=== PATIENT | female | born 1950 | race Caucasian/White ===

== ENCOUNTER 2016-08-23 08:39 | Emergency (ER) | payer MEDICARE ==
--- NOTE | 2016-08-23 08:56 | Emergency Department Record ---
History of Present Illness - General Chief Complaint: Back Pain/Injury Stated Complaint: BACK /STOMACH PAIN Time Seen by Provider: 08/23/16 08:55 Source: Patient Mode of Arrival: Ambulatory Limitations: No limitations - History of Present Illness Initial Comments: The patient is here due to a 2 hour hx of R flank and back pain. The onset was fairly sudden. The patient describes the pain as a sharp aching pain with radiation around the front to the abdomen. She also has some nausea, but no SOB , BRITTANI, sweating or vomiting. The patient states the pain sometimes does radiate around to the lower chest in addition to the abdomen. She denies any hx of similar problems or issues or any recent illnesses. She did just recently start on Prednisone for an allergic rxn. MD Complaint: Back pain Onset/Timin -: Hour(s) Similar Symptoms Previously: No Place: Home Radiation: Other Severity: Severe Severity scale (1-10): 8 Quality: Other Consistency: Constant Context: Unknown Associated Symptoms: Chest pain, Nausea/vomiting - Related Data Home Medications Medication Instructions Recorded Confirmed Last Taken Acetaminophen/Diphenhydramine 1 tab PO ASDIR 09/15/15 08/23/16 09/14/15 [Tylenol Pm Ex-Strength Caplet] Pediatric Multivit Comb No.101 2 tab PO DAILY 09/15/15 08/23/16 09/14/15 [Gummy] Cholecalciferol (Vitamin D3) 2,000 unit PO DAILY cap 08/21/16 08/23/16 Unknown [Vitamin D3] Previous Rx's Medication Instructions Recorded Sucralfate [Carafate] 1 gm PO QID #28 tablet 08/23/16 Allergies Allergy/AdvReac Type Severity Reaction Status Date / Time polymyxin B Allergy Mild HIVES Verified 08/23/16 08:49 Travel Screening - Travel/Exposure Within Last 30 Days Have you traveled within the last 30 days?: No Review of Systems Constitutional: Denies: Chills, Fever Eyes: Denies: Eye discharge ENT: Denies: Congestion Respiratory: Denies: Cough, Dyspnea Past Medical History - SOCIAL HISTORY Smoking Status: Never smoker Alcohol Use: None Drug Use: None - RESPIRATORY Hx Respiratory Disorders: Yes Hx Sleep Apnea: Yes Hx of CPAP: Yes - CARDIOVASCULAR Hx Cardio Disorders: No - NEURO Hx Neuro Disorders: No - GI Hx GI Disorders: Yes Comment:: Treated in 2003 for ulcerative colitis. - Hx Genitourinary Disorders: Yes Hx UTI: Yes - ENDOCRINE Hx Endocrine Disorders: No - MUSCULOSKELETAL Hx Musculoskeletal Disorders: No - PSYCH Hx Psych Problems: No - HEMATOLOGY/ONCOLOGY Hx Hematology/Oncology Disorders: No Family Medical History Any Significant Family History?: Yes Hx Cancer: Father Hx Diabetes: Father, Mother, Brother/Sister Hx Resp Disorders: Brother/Sister Hx Stroke: Mother Physical Exam - General General Appearance: Alert, Oriented x3, Cooperative, No acute distress - Head Head exam: Atraumatic, Normocephalic, Normal inspection - Eye Eye exam: Normal appearance, PERRL - ENT Throat exam: Normal inspection. negative: Tonsillar erythema, Tonsillar exudate - Neck Neck exam: Normal inspection, Full ROM. negative: Tenderness - Respiratory Respiratory exam: Normal lung sounds bilaterally. negative: Respiratory distress - Cardiovascular Cardiovascular Exam: Regular rate, Normal rhythm, Normal heart sounds - GI/Abdominal GI/Abdominal exam: Soft, Normal bowel sounds, Tenderness (There is mild epigastric tenderness that does reproduce the pain.). negative: Guarding, Hypoactive bowel sounds, Pulsatile mass, Rebound, Rigid - Extremities Extremities exam: Normal inspection, Full ROM, Normal capillary refill. negative: Tenderness - Back Back exam: Reports: Normal inspection, CVA tenderness (R), Paraspinal tenderness (There is R upper lumbar paraspinal tenderness that does reproduce the pain.). Denies: CVA tenderness (L), Vertebral tenderness - Neurological Neurological exam: Alert, Normal gait. negative: Abnormal gait, Motor sensory deficit Course Vital Signs 08/23/16 08:43 Temperature 97.8 F Pulse Rate 66 Respiratory 16 Rate Blood Pressure 177/81 Pulse Ox 96 - Reevaluation(s) Reevaluation #1: The patient is feeling much better at this time. Her R flank and abdominal pain have mostly resolved. She is resting comfortably with only mild epigastric pain. 08/23/16 10:15 Reevaluation #2: The patient is doing much better at this time. I did discuss her WBC with her and felt the most likely cause was the recent Prednisone she is taking due to a possible allergic rxn 2 days ago. 08/23/16 10:23 Reevaluation #3: The patient is feeling 100% better with the GI medicines. I did discuss the possibility this is all due to taking the Prednisone and causing some stomach irritation which could be causing her issues. 08/23/16 10:41 Reevaluation #4: The patient is doing very well at this time. She denies any pain or discomfort and is still 100% improved with the GI medicines. I explained to her the only thing that I can think as to the etiology of the pain is the recent Prednisone which I believe caused GI irritation. Due to the patient's entire workup being neg I do feel she is very stable for discharge and F/U this week with her PCP. 08/23/16 12:42 Medical Decision Making - Data Complexity MDM Data: Labs Ordered and/or Reviewed, X-Ray Ordered and/or Reviewed, EKG Ordered and/or Reviewed - Lab Data Result diagrams: 08/23/16 09:40 08/23/16 09:36 - EKG Data -: EKG Interpreted by Me EKG: No Acute Changes, Normal EKG, Unchanged From Previous - Radiology Data Radiology results: Report reviewed (CXR: Neg Abd CT: No acute abnormalities. Pos Gallstones. Chest CT: Neg for any abnormalities.) Disposition Disposition: Discharge Clinical Impression: Abdominal pain Qualifiers: Abdominal location: upper abdomen, unspecified Qualified Code(s): R10.10 - Upper abdominal pain, unspecified Disposition: Home, Self-Care Condition: (1) Good Instructions: Abdominal Pain (ED) Additional Instructions: Please stop the Prednisone and start the Carafate. Please see your PCP in 2-3 days if having any itching or discomfort. Please return to the ER for any CP, shortness of breath, abdominal pain or vomiting. Prescriptions: Sucralfate [Carafate] 1 gm PO QID #28 tablet Forms: Patient Portal Access Time of Disposition: 12:41
[2016-08-23] MEDS ORDERED: SUCRALFATE 1 G/10 ML UD PO ONE (09:09)
[2016-08-23] MEDS ORDERED: ONDANSETRON HCL IV 4 MG/2 ML VIAL IVP ONE (09:09)
[2016-08-23 09:43] LABS: BASO % 0.1 % (0-6); HEMATOCRIT 42.6 % (35.0-47.0); HEMOGLOBIN 14.6 gm/dl (11.6-16.0); LYMPH % 10.9 % (16-45); MEAN CELL VOLUME 96.4 fl (81-97); MEAN CORPUSCULAR HGB CONC 34.3 g/dl (32-36); MEAN PLATELET VOLUME 9.6 fl (7.4-10.4); PLATELET COUNT 307 K/uL (130-400); RED BLOOD COUNT 4.42 M/uL (3.80-5.40); RED CELL DISTRIBUTION WIDTH 13.3 % (11.5-14.5)
[2016-08-23 09:46] LABS: WHITE BLOOD COUNT W/O DIFF 20.2 K/uL (4.2-12.2)
[2016-08-23 09:58] LABS: ALBUMIN 4.1 gm/dL (3.5-5.0); BILIRUBIN,TOTAL 0.33 mg/dL (0.2-1.3); TOTAL PROTEIN 7.5 gm/dL (6.3-8.2)
[2016-08-23 09:59] LABS: ANION GAP 15.1 (7-16); BLOOD UREA NITROGEN 16 mg/dL (7-17); CARBON DIOXIDE 23.9 mmol/L (22-30); CREATINE PHOSPHOKINASE 26 U/L (30-135); CREATININE 0.6 mg/dL (0.52-1.04); EST GLOMERULAR FILTRATION RATE > 60 ml/min; GLUCOSE,RANDOM 135 mg/dL (70-110)
[2016-08-23 10:12] LABS: CKMB 0.9 ug/L (0-6)
[2016-08-23 10:13] LABS: URINE APPEARANCE CLEAR; URINE BILIRUBIN NEGATIVE (NEGATIVE); URINE BLOOD TRACE-I (NEGATIVE); URINE COLOR YELLOW; URINE GLUCOSE (UA) NEGATIVE (NEGATIVE); URINE KETONE NEGATIVE (NEGATIVE); URINE LEUKOCYTE ESTERASE NEGATIVE (NEGATIVE); URINE NITRITE NEGATIVE (NEGATIVE); URINE PROTEIN NEGATIVE (NEGATIVE); URINE UROBILINOGEN 0.2 E.U./dL (0.20 - 1.00)
[2016-08-23] MEDS ORDERED: MAGNESIUM HYDROXIDE/AL HYDROX 10.0001 ML, LIDOCAINE VISC 2% 200 MG, PHENOBARB/HYOSCY/AT... PO ONE ×3 (10:14)
[2016-08-23 10:18] LABS: TROPONIN I < 0.012 ng/mL (0.00-0.034)
[2016-08-23 10:26] LABS: URINE MUCUS LIGHT; URINE RBC 0 - 2 (NONE SEEN); URINE SQUAMOUS EPITHELIAL CELL 0 - 2 /hpf; URINE WBC NONE SEEN (0-2/hpf)
[2016-08-23 10:26] LABS: PLATELET ESTIMATE NORMAL (NORMAL)
[2016-08-23 12:29] LABS: CKMB 0.8 ug/L (0-6)
[2016-08-23 12:30] LABS: TROPONIN I < 0.012 ng/mL (0.00-0.034)
--- NOTE | 2016-08-27 07:21 | RADIOLOGY REPORT ---
EXAM: CHEST, TWO VIEWS HISTORY: MID STERNAL CHEST PAIN AND PRESSURE. TECHNIQUE: Two views of the chest were obtained. Comparison: None. FINDINGS: The heart is not enlarged. The lungs and pleural spaces are clear. IMPRESSION: NO ACUTE CARDIOPULMONARY ABNORMALITY. JOB NUMBER: [id number] [facility]
--- NOTE | 2016-08-27 07:31 | CT SCAN REPORT ---
EXAM: CT OF THE ABDOMEN AND PELVIS WITHOUT CONTRAST HISTORY: BACK PAIN. CHEST PAIN AND PRESSURE. NAUSEA. TECHNIQUE: Routine noncontrast CT images through the abdomen and pelvis were obtained. Comparison: None. FINDINGS: The visualized lung bases are unremarkable. There is a 2 cm sized range stone within the gallbladder. The liver, spleen, and adrenals have a normal noncontrast appearance. The pancreas appears unremarkable other than suggestion of trace peripancreatic fluid adjacent to the head/uncinate process. There is also an adjacent duodenal diverticula both within the second and third portion of the duodenum. There is bilateral perinephric fat stranding probably related to a chronic process, correlate with physical exam findings and urinalysis. No renal or ureteral calculi or hydronephrosis. Suggestion of a small hiatal hernia. Mild scattered colonic diverticulosis without CT evidence of diverticulitis. Bladder unremarkable. The uterus is present. No abdominal or pelvic lymphadenopathy. The aorta is normal in caliber. Atherosclerotic calcifications are noted. Small fat containing periumbilical hernia. No acute osseous abnormality. Calcified disk bulge at L2-L3 likely contributes to central canal narrowing. IMPRESSION: 1. SUGGESTION OF SUBTLE PERIPANCREATIC FLUID ADJACENT TO THE HEAD/UNCINATE PROCESS. THIS COULD RELATE TO EARLY PANCREATITIS IN THE APPROPRIATE CLINICAL SETTING. 2. DUODENAL DIVERTICULA. 3. CHOLELITHIASIS. 4. BILATERAL PERINEPHRIC FAT STRANDING FAVOR CHRONIC ETIOLOGIES THOUGH CORRELATE WITH PHYSICAL EXAM FINDINGS AND URINALYSIS TO EXCLUDE INFECTIOUS CAUSES. 5. TINY HIATAL HERNIA. 6. COLONIC DIVERTICULOSIS. 7. LUMBAR SPONDYLOSIS. DISK BULGE AT L2-3 WITH CENTRAL CANAL NARROWING. [facility]BER: [id number] [facility]
--- NOTE | 2016-08-27 07:35 | CT ANGIOGRAM REPORT ---
EXAM: CTA OF THE CHEST HISTORY: CHEST PRESSURE AND BACK PAIN. EVALUATE FOR PULMONARY EMBOLUS. TECHNIQUE: Routine CT angiography images of the chest were obtained following intravenous administration of 100 ml of Omnipaque 350. Comparison: None. FINDINGS: The heart is not enlarged. No pericardial effusion. The aorta enhances normally with contrast. There is calcified and noncalcified atherosclerotic plaque. No central filling defects within the pulmonary arteries to suggest acute PE. No mediastinal or hilar lymph node enlargement. Mild bibasilar dependent atelectasis. No focal consolidation, pleural effusion , or pneumothorax. The visualized upper abdomen demonstrates cholelithiasis. Suspect a duodenal diverticulum. No acute osseous abnormality. IMPRESSION: 1. NO ACUTE INTRATHORACIC ABNORMALITY. SPECIFICALLY NO EVIDENCE OF PULMONARY EMBOLUS. 2. AORTIC ATHEROSCLEROSIS. 3. CHOLELITHIASIS. JOB NUMBER: [id number] [facility]
== END 2016-08-23 12:58 | disposition home or self-care (01) ==
LOC: ER 08:39
DX: R10.13 Epigastric pain (principal); R11.0 Nausea; M54.5 Low back pain; R07.89 Other chest pain
CPT/HCPCS: 99284 ×2; 96374; 82550; 83690; 80076; 82553; 84484; 80048; 81001; 85379; 85027; 71020; 71275; 74176; 93005; 93010; Q9967; J2405; J3490

== ENCOUNTER 2018-03-22 05:43 | Day surgery (SDC) | payer MEDICARE ==
[2018-03-22] MEDS ORDERED: EPHEDRINE SULFATE 50 MG/ML ML IV ONE (05:44)
[2018-03-22] MEDS ORDERED: ONDANSETRON HCL IV 4 MG/2 ML VIAL IVP ONE (05:44)
[2018-03-22] MEDS ORDERED: BUPIVACAINE 0.25% W/EPI MPF 30ML VIAL IVP ONE (05:44)
[2018-03-22] MEDS ORDERED: MIDAZOLAM HCL 2MG/2ML VIAL IV ONE (05:44)
[2018-03-22] MEDS ORDERED: PROPOFOL 10 MG/ML VIAL IV ONE (05:44)
[2018-03-22] MEDS ORDERED: LIDOCAINE 2% MDV (20MG/ML) 20ML VIAL IV ONE (05:44)
[2018-03-22] MEDS ORDERED: DEXAMETHASONE 4 MG/ML 1ML VIAL IVP ONE (05:44)
[2018-03-22] MEDS ORDERED: 0.9 % SODIUM CHLORIDE 10 ML VIAL IVP ONE (05:44)
[2018-03-22] MEDS ORDERED: TRANEXAMIC ACID 1,000 MG/10 ML ML IV ONE (05:44)
[2018-03-22] MEDS ORDERED: ROPIVACAINE HCL (NAROPIN) /PF 5MG/ML 20ML VIAL IV ONE (05:44)
[2018-03-22] MEDS ORDERED: BUPIVACAINE LIPOSOME 266MG/20ML VIAL IV ONE (05:44)
[2018-03-22] MEDS ORDERED: MECLIZINE 25 MG TABLET PO ONE (06:00)
[2018-03-22] MEDS ORDERED: ACETAMINOPHEN 1,000 MG/100 ML BTL IV ONE (06:00)
[2018-03-22] MEDS ORDERED: METOCLOPRAMIDE 10 MG TABLET PO ONE (06:00)
[2018-03-22] MEDS ORDERED: CEFAZOLIN 2 Gram 2 GM/50 ML BAG IVPB ONE (06:00)
[2018-03-22] MEDS ORDERED: FAMOTIDINE 20MG TABLET PO ONE (06:00)
[2018-03-22] MEDS ORDERED: CELECOXIB 100 MG CAPSULE PO ONE (06:00)
[2018-03-22] MEDS ORDERED: AL HYDROX/MAG HYDROX 30ML UD PO PRN (10:15)
[2018-03-22] MEDS ORDERED: ZOLPIDEM TARTRATE 5 MG TABLET PO PRN (10:15)
[2018-03-22] MEDS ORDERED: TRAMADOL HCL 50 MG TABLET PO PRN (10:15)
[2018-03-22] MEDS ORDERED: MAGNESIUM HYDROXIDE 30 ML UDC PO PRN (10:15)
[2018-03-22] MEDS ORDERED: METOCLOPRAMIDE HCL 10 MG/2 ML VIAL IVP PRN (10:15)
[2018-03-22] MEDS ORDERED: DIPHENHYDRAMINE HCL 25 MG CAPSULE PO PRN (10:15)
[2018-03-22] MEDS ORDERED: SENNOSIDES/DOCUSATE SODIUM UD CAPSULE PO PRN (10:15)
[2018-03-22] MEDS ORDERED: ONDANSETRON HCL IV 4 MG/2 ML VIAL IVP PRN (10:15)
[2018-03-22] MEDS ORDERED: HYDROMORPHONE HCL 2 MG/ML VIAL IV PRN (10:15)
[2018-03-22] MEDS ORDERED: OXYCODONE HCL 5 MG TABLET PO PRN ×2 (10:19)
[2018-03-22] MEDS ORDERED: LORATADINE 10 MG TABLET PO PRN (10:20)
[2018-03-22] MEDS ORDERED: RINGERS SOLUTION,LACTATED 1,000 ML IV PRN (10:31)
[2018-03-22] MEDS: RINGERS SOLUTION,LACTATED 1,000 ML IV SCH (11:37)
[2018-03-22] MEDS ORDERED: TRANEXAMIC ACID 1,000 MG in 0.9 % SODIUM CHLORIDE 100ML 100 ML IVPB ONE (13:00)
--- NOTE | 2018-03-22 13:40 | Rehab Evaluation ---
Patient Information - Patient Information Diagnosis: R knee OA Ordered Treatment: PT Evaluate and Treat Status: Initial Evaluation Surgery: Yes (R TKA) Date of Surgery: 03/22/18 Past Medical/Surgical Hx: PAST MEDICAL/SURGICAL HISTORY Past Surgical History Tubal ligation and appendix PMH - Respiratory Hx Respiratory Disorders Yes Hx Pneumonia Yes: 2003 Hx Sleep Apnea Yes Hx of CPAP Yes Comment: allergies PMH - Cardiovascular Hx Cardiovascular Disorders No Hx Hypertension Yes: on meds good control Exercise Tolerance Good PMH - Neuro Hx Neurological Disorders No Hx Headaches Yes: frequently r/t stress PMH - GI Hx Gastrointestinal Disorders Yes Comment: Treated in 2003 for ulcerative colitis. PMH - Hx Genitourinary Disorders Yes Hx Age of Menopause 43 Hx Urinary Tract Infection Yes PMH - Endocrine Hx Endocrine Disorders No Hx Diabetes No Hx Thyroid Disease No PMH - Musculoskeletal Hx Musculoskeletal Disorders No Hx Arthritis Yes: knees PMH - Psych Hx Psychiatric Problems No Hx Anxiety Yes Hx Depression Yes PMH - Hematology/Oncology Hx Hematology/Oncology No Disorders Premorbid Status: Detail (The patient was independent with all mobility prior to surgery) Social History: Detail (The patient lives in a one story home with spouse with 4 steps at the enterance and 2 hand railings. The patient's bathroom is equipped with a tub/shower combination and a standard height toilet. No grab bars are present. The patient has a walker.) Precautions: [place], Fall, Other (WBAT on the R LE.) - Time With Patient Total Time Spent With Patient (Min): 30 Treatment Procedures: Detail (Initial Evaluation, gait training) Subjective Information - Subjective Information Per Patient (The patient had complaints of R knee pain level 5 at the highest using the 0-10 pain scale.) Objective Data - Mental Status Patient Orientation: Oriented x3 - ROM Not within normal limits (The patient's R knee AROM is limited s/p surgery. All other LE AROM is WNL.) - Strength/Tone Not within normal limits (The patient's R LE strength was not tested s/p surgery however strength is functional ie: the patient was able to complete a SLR and ambulate. The patient's L LE strength was 4+ to 5/5.) - Bed Mobility Independent (The patient was independent with supine to and from sit transfer and scooting up in bed.) - Transfers Independent (The patient was independent with sit to and from stand transfer and toilet transfer with occasional verbal cues for proper technique.) - Balance Balance Sitting: Good Balance Standing: Good - Sensation Intact - Gait Detail (The patient ambulated with 2 wheeled walker a distance of 13 feet x 1 and 40 feet x 1 with WBAT on the R LE with supervision for safety only and one to handle equipment.) Therapy Assessment - Therapy Assessment Detail (The patient was independent with bed mobility, transfers and ambulated with supervison for safety only. Feel patient will progress well with mobility.) Problem List - Problem List Physical Therapy Problem List: Detail (1) Decreased R knee AROM and R LE strength 2) Nonambulatory on stairs) Goals - Goals Physical Therapy Goals: 1) The patient will ambulate on stairs with supervision for safety only using proper technique. 2) The patient will be independent with HEP of TKA exercises. Prognosis - Prognosis Good Plan - Plan Physical Therapy Plan: PT for 1-2 PT sessions for gait training on stairs and instruction in HEP.
[2018-03-22] MEDS ORDERED: CEFAZOLIN 2 Gram 2 GM/50 ML BAG IVPB SCH (16:00)
[2018-03-22] MEDS: ACETAMINOPHEN 1,000 MG/100 ML BTL IV SCH ×2 (16:14→20:00)
[2018-03-22] MEDS: CEFAZOLIN 1 Gram 2 GM/100 ML BAG IVPB SCH ×2 (16:37→23:59)
[2018-03-22] MEDS: TRAMADOL HCL 50 MG TABLET PO PRN (19:36)
[2018-03-22] MEDS ORDERED: ESCITALOPRAM 10 MG TABLET PO SCH (22:00)
[2018-03-22] MEDS: ASPIRIN 325 MG TAB ENTERIC-COATED PO SCH (22:21)
[2018-03-23] MEDS: ACETAMINOPHEN 1,000 MG/100 ML BTL IV SCH (01:31)
[2018-03-23] MEDS: RINGERS SOLUTION,LACTATED 1,000 ML IV SCH (02:34)
[2018-03-23] MEDS: TRAMADOL HCL 50 MG TABLET PO PRN (06:36)
[2018-03-23 06:48] LABS: HEMATOCRIT 37.2 % (35.0-47.0); HEMOGLOBIN 12.2 gm/dl (11.6-16.0); MEAN CELL VOLUME 98.4 fl (81-97); MEAN CORPUSCULAR HGB CONC 32.8 g/dl (32-36); PLATELET COUNT 253 K/uL (130-400); RED BLOOD COUNT 3.78 M/uL (3.80-5.40); RED CELL DISTRIBUTION WIDTH 12.8 % (11.5-14.5); WHITE BLOOD COUNT W/O DIFF 15.8 K/uL (4.2-12.2)
[2018-03-23 06:57] LABS: MEAN CORPUSCULAR HEMOGLOBIN 32.2 pg (27-33)
--- NOTE | 2018-03-23 08:36 | Rehab Evaluation ---
Patient Information - Patient Information Diagnosis: R knee OA Ordered Treatment: OT Evaluate and Treat Status: Initial Evaluation Surgery: Yes (R TKA) Date of Surgery: 03/22/18 Past Medical/Surgical Hx: PAST MEDICAL/SURGICAL HISTORY Past Surgical History Tubal ligation and appendix PMH - Respiratory Hx Respiratory Disorders Yes Hx Pneumonia Yes: 2003 Hx Sleep Apnea Yes Hx of CPAP Yes Comment: allergies PMH - Cardiovascular Hx Cardiovascular Disorders No Hx Hypertension Yes: on meds good control Exercise Tolerance Good PMH - Neuro Hx Neurological Disorders No Hx Headaches Yes: frequently r/t stress PMH - GI Hx Gastrointestinal Disorders Yes Comment: Treated in 2003 for ulcerative colitis. PMH - Hx Genitourinary Disorders Yes Hx Age of Menopause 43 Hx Urinary Tract Infection Yes PMH - Endocrine Hx Endocrine Disorders No Hx Diabetes No Hx Thyroid Disease No PMH - Musculoskeletal Hx Musculoskeletal Disorders No Hx Arthritis Yes: knees PMH - Psych Hx Psychiatric Problems No Hx Anxiety Yes Hx Depression Yes PMH - Hematology/Oncology Hx Hematology/Oncology No Disorders Premorbid Status: Detail (The patient was independent with all mobility prior to surgery) Social History: Detail (The patient lives in a one story home with basement, with spouse with 3 steps at the entrance and 2 hand railings. She stays on the main floor. The patient's bathroom is equipped with a tub/shower combination and a standard height toilet. She has a small shower seat. No grab bars are present. The patient has a walker. Her spouse is responsible for meal prep and she is responsible for home mgmt and laundry although her spouse is able to assist as needed.) Precautions: [place], Fall, Other (WBAT on the R LE.) - Time With Patient Total Time Spent With Patient (Min): 30 Treatment Procedures: Detail (OT eval low complexity) Subjective Information - Subjective Information Per Patient Objective Data - Pain Pain Present: Yes (2/10 knee pain, 4/10 headache) - Mental Status Patient Orientation: Oriented x3 - Visual Perception Appears within normal limits for therapeutic activities - ROM Within normal limits (Tigre UE AROM WNL) - Strength/Tone Within normal limits (Tigre UE strength WNL) - Coordination Appears within normal limits for therapeutic activities - Bed Mobility Independent (Ind with supine to sit) - Transfers Independent (Ind with sit to stand from EOB, toilet and chair heights.) - Balance Balance Sitting: Good Balance Standing: Good - Sensation Intact - Gait Detail (Pt ambulating in hallway with 2 wheeled walker Indly.) - ADL's/IADL's Detail (Pt educated and demonstrated learning of modified LE dressing techniques including doffing briefs and slipper socks and donning underwear, sweatpants and tennis shoes. Pt was Ind with toileting. Reviewed kitchen and bathroom safety and modifications and pt was able to verbalize understanding.) Therapy Assessment - Therapy Assessment Detail (Pt is Ind with LE dressing using modified dressing techniques.) Problem List - Problem List Physical Therapy Problem List: Detail (1) Decreased R knee AROM and R LE strength 2) Nonambulatory on stairs) Occupational Therapy Problem List: Detail (No current OT problems identified.) Goals - Goals Physical Therapy Goals: 1) The patient will ambulate on stairs with supervision for safety only using proper technique. 2) The patient will be independent with HEP of TKA exercises. Occupational Therapy Goals: No current IP OT goals identified. Prognosis - Prognosis Good Plan - Plan Physical Therapy Plan: PT for 1-2 PT sessions for gait training on stairs and instruction in HEP. Occupational Therapy Plan: No further IP OT recommended. Thank you for this referral.
[2018-03-23] MEDS: CEFAZOLIN 1 Gram 2 GM/100 ML BAG IVPB SCH (08:56)
[2018-03-23] MEDS: ASPIRIN 325 MG TAB ENTERIC-COATED PO SCH (09:04)
[2018-03-23] MEDS ORDERED: HYDROCHLOROTHIAZIDE 12.5 MG CAPSULE PO SCH (10:00)
[2018-03-23] MEDS ORDERED: CELECOXIB 100 MG CAPSULE PO SCH (10:00)
[2018-03-23] MEDS ORDERED: RANITIDINE HCL 150 MG TABLET PO SCH (10:00)
[2018-03-23] MEDS ORDERED: OXYCODONE HCL/APAP 5MG/325MG TABLET PO PRN ×2 (10:19)
[2018-03-23] MEDS ORDERED: HYDROCODONE/APAP 5/325MG TABLET PO PRN ×2 (10:19)
--- NOTE | 2018-03-23 10:50 | Operative Note ---
DATE OF SURGERY: 03/22/2018 Surgeon: Sam Giang DO PREOPERATIVE DIAGNOSIS: Primary osteoarthritis of the right knee. POSTOPERATIVE DIAGNOSIS: Primary osteoarthritis of the right knee. OPERATION: Right total knee arthroplasty. DESCRIPTION OF PROCEDURE: This 68-year-old female was taken to the operating room and placed in the supine position on the operating room table where spinal anesthesia was induced. The right lower extremity was then elevated. It was prepped with Hibiclens and draped in the usual sterile fashion. All scrub personnel wore personal isolation suits. The right lower extremity was exsanguinated and the tourniquet inflated to 300 mmHg. An anterior longitudinal midline incision was made followed by a medial parapatellar arthrotomy incision. An intracondylar drill hole was made for the intramedullary alignment harish, and a 5-degree valgus 9 mm cut was made in the distal femur. The wafer of bone was removed. Sizing jig was affixed and size 60 was seen to be the appropriate size in the medial-lateral direction but too small in the anterior-posterior dimension. Therefore, we moved the pin sites 2 mm anteriorly and the size 60 four-in-one cutting block was pinned in 3 degrees of external rotation. The cuts were made and the wafer of bone was removed. We then directed our attention to the proximal tibia and an extramedullary alignment guide was used to cut the proximal tibia referencing a 10 mm cut off the lateral tibial plateau. The alignment jig was appropriately positioned and then pinned in the appropriate position and then subsequently, a 3-degree posterior slope cut was made and the wafer of bone was removed. Remnants of the menisci and osteophytes were removed from the posterior aspect of the joint. The wound was copiously irrigated with pulse lavage, lactated Ringer's solution removing all debris from the joint. The patella was cut and restored to anatomic height with a 31 x 7.8 mm trial. The tibia was sized to a size 63 and the stem punch was used. Subsequently, the tibial and femoral trials were inserted and a 12 mm bearing was seen to be the appropriate size. This gave us full extension and full flexion with excellent stability throughout the range of all trial components. All trial components were then removed and the wound again copiously irrigated with pulse lavage, lactated Ringer's solution. All bony surfaces were dried and excess cement removed after the insertion of each component. Exparel was injected into the posterior, medial, and lateral corners of the joint and after insertion of the final components, the remainder was injected into the periosteum and joint capsule of the proximal tibia and distal femur. We initially placed the tibial baseplate followed by the insertion of the tibial bearing, femoral component, and finally the patella. Once the cement had hardened, the knee was again taken through range of motion and found to be stable. A drain was placed through a separate stab incision, and the arthrotomy incision was closed with a #2 Vicryl. The subcutaneous tissue was closed with 0 Vicryl and the skin was stapled. Sterile dressings with a Polar Care were applied. The patient was taken to the recovery room in satisfactory condition. GROSS PATHOLOGY: This patient has severe medial compartment articular cartilage loss. No articular cartilage on the medial femoral condyle or tibial plateau. Marginal osteophytes were present. Advanced degenerative disease at the patellofemoral joint was also identified with grade 2 changes noted in the lateral compartment. Final components inserted were a [employer] size 60 cruciate retaining femur, a size 63 tibial baseplate, a 12 mm anterior stabilized D1 bearing, and a 31 x 7.8 mm patella was used. CC: JOIE Trejo
--- NOTE | 2018-03-23 10:55 | Physical Therapy Tx Note ---
Physical Therapy Tx Note - Treatment Note Tolerated: Good Total Time Spent With Patient: 30 Physical Therapy Tx Note: Detail (The patient was in bed when PT arrived. The patient's HEP was reviewed and completed including: heel slides supine and seated, ankle pumps, gluteal sets, hamstring sets, quad sets and SLR. The patient showed good understanding and proper technique. The proper technique of tub transfer was reviewed ( transferring to seat, sitting, then putting legs in) The patient understood technique and declined tub transfer practice in rehab department. The patient ambulated on stairs with use of one railing and folded walker using proper technique with supervision for safety only. The patient has met all inpatient goals and is discharged from inpatient therapy.) Physical Therapy Problem List: Detail (1) Decreased R knee AROM and R LE strength 2) Nonambulatory on stairs) Physical Therapy Goals: 1) The patient will ambulate on stairs with supervision for safety only using proper technique.(Goal Met). 2) The patient will be independent with HEP of TKA exercises. (Goal Met) Physical Therapy Plan: The patient has met all inpatient PT goals and is discharged from inpatient PT. The patient is to receive outpatient PT .
--- NOTE | 2018-03-24 13:00 | Discharge Summary ---
DATE OF ADMISSION: 03/22/2018 DATE OF DISCHARGE: 03/23/2018 ADMITTING DIAGNOSIS: Osteoarthritis of the right knee. DISCHARGE DIAGNOSIS: Osteoarthritis of the right knee. OPERATIVE PROCEDURE: Elective right total knee arthroplasty. DESCRIPTION: This 68-year-old female was admitted to the hospital for elective total knee arthroplasty and tolerated the operative procedure well. She progressed satisfactorily with physical therapy and cleared physical therapy and was ready for discharge. She had no sign of complication at the time of discharge. She will have outpatient physical therapy and she will take aspirin 325 mg daily. She was also given a prescription for [place] 5/325, #40, one every 4 hours as necessary for pain. She was given instructions to wear her ALEIDA hose during the day and remove them at night. Routine wound instructions were given. She will follow up in my clinic in 2 weeks. Should she have any problems prior to being seen, she was instructed to call my office. ARA
== END 2018-03-23 15:10 | disposition home or self-care (01) ==
LOC: SUR 05:43 → MEDSURG 10:13 → SUR 03-23 15:10
PROVIDERS: ATTEND Orthopaedic Surgery
DX: M17.11 Unilateral primary osteoarthritis, right knee (principal); I10 Essential (primary) hypertension; K21.9 Gastro-esophageal reflux disease without esophagitis
CPT/HCPCS: 27447; 01402; 85025; J2405; J0690 ×3; J1170; C9290; J3490; J2795; G8978; G8979 ×2; G8980; G8987; G8988; G8989; 97110; 97530; J7120

== ENCOUNTER 2018-11-04 14:41 | Emergency (ER) | payer MEDICARE, OTHER ==
[2018-11-04] MEDS ORDERED: 0.9 % SODIUM CHLORIDE 1,000 ML BAG IV ONE (14:44)
[2018-11-04] MEDS ORDERED: ONDANSETRON HCL IV 4 MG/2 ML VIAL IVP ONE (14:44)
--- NOTE | 2018-11-04 14:50 | Emergency Department Record ---
History of Present Illness - General Chief complaint: Flank Pain Stated complaint: FLANK PAIN Time Seen by Provider: 11/04/18 14:43 Source: Patient Mode of Arrival: Ambulatory Limitations: No limitations - History of Present Illness Initial comments: 68 yo female presents with two days of left flank pain with nausea. No vomiting or fever. The pain is always present but the intensity comes and goes. No rash. No history of similar pain. She denies dysuria, hematuria. She has diarrhea that is consistent with her colitis that is stable. No injury. No history of prior renal stones. MD Complaint: Other (Left Flank Pain) -: Days(s) Radiation: L flank Severity: Moderate Quality: Aching, Sharp Consistency: Intermittent Improves with: None Worsens with: None Associated Symptoms: Loss of appetite, Nausea/vomiting - Related Data Previous Rx's Medication Instructions Recorded Cyclobenzaprine HCl [Flexeril] 5 mg PO TID #20 tab 11/04/18 Allergies Allergy/AdvReac Type Severity Reaction Status Date / Time prednisone Allergy Severe Chest pain Unverified 09/14/18 15:44 polymyxin B Allergy Mild HIVES Unverified 09/14/18 15:44 atorvastatin [From Lipitor] AdvReac MUSCLE PAIN Unverified 11/04/18 14:08 Review of Systems Constitutional: Denies: Chills, Fever, Malaise, Weakness Eyes: Denies: Eye discharge ENT: Denies: Congestion, Throat pain Respiratory: Denies: Cough Cardiovascular: Denies: Chest pain, Palpitations, Syncope Endocrine: Denies: Fatigue Gastrointestinal: Reports: As per HPI, Abdominal pain, Diarrhea, Nausea. Denies : Constipation, Hematemesis, Hematochezia, Melena, Vomiting Genitourinary: Denies: Dysuria, Hematuria, Urgency Musculoskeletal: Reports: Back pain. Denies: Arthralgia Skin: Denies: Bruising, Change in color, Rash Neurological: Denies: Headache Psychiatric: Denies: Anxiety Hematological/Lymphatic: Denies: Blood Clots, Easy bleeding, Easy bruising Past Medical History - SOCIAL HISTORY Smoking Status: Never smoker Drug Use: None - RESPIRATORY Hx Respiratory Disorders: Yes Hx Sleep Apnea: Yes Hx of CPAP: Yes - CARDIOVASCULAR Hx Cardio Disorders: No - NEURO Hx Neuro Disorders: No - GI Hx GI Disorders: Yes Comment:: Treated in 2003 for ulcerative colitis. - Hx Genitourinary Disorders: Yes Hx UTI: Yes - ENDOCRINE Hx Endocrine Disorders: No Hx Diabetes: No Hx Thyroid Disease: No - MUSCULOSKELETAL Hx Musculoskeletal Disorders: No - PSYCH Hx Psych Problems: No - HEMATOLOGY/ONCOLOGY Hx Hematology/Oncology Disorders: No Family Medical History Hx Cancer: Father Hx Diabetes: Father, Mother, Brother/Sister Hx Resp Disorders: Brother/Sister Hx Stroke: Mother Physical Exam - General General Appearance: Alert, Oriented x3, Cooperative, No acute distress Limitations: No limitations - Head Head exam: Atraumatic, Normal inspection - Eye Eye exam: Normal appearance, PERRL. negative: Conjunctival injection, Scleral icterus - ENT ENT exam: Normal exam Ear exam: Normal external inspection Nasal Exam: Normal inspection Mouth exam: Normal external inspection - Neck Neck exam: Normal inspection - Respiratory Respiratory exam: Normal lung sounds bilaterally. negative: Respiratory distress, Rhonchi, Stridor, Wheezes - Cardiovascular Cardiovascular Exam: Regular rate, Normal rhythm, Normal heart sounds - GI/Abdominal GI/Abdominal exam: Soft, Normal bowel sounds. negative: Distended, Guarding, Rebound, Rigid, Tenderness - Rectal Rectal exam: Deferred - exam: Deferred - Extremities Extremities exam: Normal inspection. negative: Tenderness - Back Back exam: Reports: CVA tenderness (L), Tenderness. Denies: CVA tenderness (R) , Rash noted - Neurological Neurological exam: Alert, Normal gait, Oriented X3 - Psychiatric Psychiatric exam: Normal affect, Normal mood. negative: Agitated, Anxious - Skin Skin exam: Dry, Intact, Normal color, Warm Course - Reevaluation(s) Reevaluation #1: 11/04/18 15:31 The labs were reviewed No acute changes on the CBC, CMP or UA 11/04/18 16:[address] was negative for any acute process. Diverticulosis without diverticulitis noted and gall stones. 11/04/18 16:18 We discussed the results of the tests and questions were answered at the time of discharge. She was informed regarding the diverticulosis and gall stones The patient is doing well and is comfortable with DC. DC vitals were reviewed. We discussed at length reasons to immediately return to the ED as well as close follow up. The patient will call the PCP for close follow up of this ED visit to review this visit and the tests performed Medical Decision Making - Lab Data Result diagrams: 11/04/18 15:05 11/04/18 15:05 Disposition Disposition: Discharge Clinical Impression: Flank pain, acute Disposition: Home, Self-Care Condition: (1) Good Instructions: Flank Pain (ED) Additional Instructions: Call your doctor for the next available follow up appointment Return to the ER for a recheck if worse, any new concerns or questions Take the prescriptions provided as directed Review this ER visit and the tests performed with your family doctor You did have diverticulosis and gall stones as we discussed on your CT scan You can follow up these findings with your doctor. Prescriptions: Cyclobenzaprine HCl [Flexeril] 5 mg PO TID #20 tab Forms: Patient Portal Access Time of Disposition: 16:09 Quality - Quality Measures Quality Measures: N/A - Blood Pressure Screening Does Patient Have Any of the Following: No Blood Pressure Classification: Pre-Hypertensive BP Reading Systolic Measurement: 133 Diastolic Measurement: 76 Screening for High Blood Pressure: < Pre-Hypertensive BP, F/U Documented > [ [id number]] Pre-Hypertensive Follow-up Interventions: Referral to alternative/primary care provider.
[2018-11-04 15:16] LABS: BASO % 0.3 % (0-6); EOS % 3.1 % (0-6); GRAN % 56.2 % (47-80); HEMATOCRIT 40.6 % (35.0-47.0); HEMOGLOBIN 13.9 gm/dl (11.6-16.0); MEAN CORPUSCULAR HEMOGLOBIN 32.2 pg (27-33); MEAN CORPUSCULAR HGB CONC 34.2 g/dl (32-36); MEAN PLATELET VOLUME 9.5 fl (7.4-10.4); MONO % 8.4 % (0-9); PLATELET COUNT 319 K/uL (130-400); RED BLOOD COUNT 4.32 M/uL (3.80-5.40); RED CELL DISTRIBUTION WIDTH 13.2 % (11.5-14.5); URINE APPEARANCE CLEAR; URINE BILIRUBIN NEGATIVE (NEGATIVE); URINE BLOOD NEGATIVE (NEGATIVE); URINE COLOR YELLOW; URINE GLUCOSE (UA) NEGATIVE (NEGATIVE); URINE KETONE NEGATIVE (NEGATIVE); URINE LEUKOCYTE ESTERASE NEGATIVE (NEGATIVE); URINE NITRITE NEGATIVE (NEGATIVE); URINE PROTEIN NEGATIVE (NEGATIVE); URINE UROBILINOGEN 0.2 E.U./dL (0.20 - 1.00); WHITE BLOOD COUNT W/O DIFF 10.2 K/uL (4.2-12.2)
[2018-11-04 15:26] LABS: BLOOD UREA NITROGEN 19 mg/dL (8-23); CREATININE 0.7 mg/dL (0.5-0.9); EST GLOMERULAR FILTRATION RATE > 60 mL/min
[2018-11-04 15:27] LABS: LIPASE 41 U/L (13-60)
[2018-11-04 15:29] LABS: GLUCOSE,RANDOM 106 mg/dL (74-109)
[2018-11-04] MEDS ORDERED: KETOROLAC 30 MG/ML VIAL IVP ONE (15:31)
--- NOTE | 2018-11-07 13:12 | CT SCAN REPORT ---
EXAM: CT OF THE ABDOMEN AND PELVIS WITHOUT CONTRAST HISTORY: LEFT FLANK PAIN. TECHNIQUE: Noncontrast CT of the abdomen and pelvis was obtained. Comparison: CT of the abdomen and pelvis 08/23/16. FINDINGS: Mild dependent lower lobe atelectasis. Stable right lung base natalie- fissural nodule. Cholelithiasis. Unremarkable appearance of the liver. Unremarkable appearance of the spleen. Unremarkable appearance of the adrenal glands and pancreas. Nonspecific perinephric stranding, similar from prior examination. No hydronephrosis. No calculi in the kidneys or ureters. No bladder calculi. Transverse, descending and sigmoid colon diverticulosis without evidence of acute diverticulitis. The stomach and small bowel are not dilated. The diverticulum projects medially from the second segment of the duodenum. Diffuse calcification of the aortoiliac arterial access without aneurysmal dilation. No mesenteric or retroperitoneal lymphadenopathy. No acute osseous findings. Large bulging disk at L2-L3 with associated osteophytes appears to narrow the central spinal canal. IMPRESSION: 1. NO ACUTE FINDINGS IN THE ABDOMEN PELVIS. 2. CHOLELITHIASIS. 3. COLONIC DIVERTICULOSIS WITHOUT EVIDENCE OF ACUTE DIVERTICULITIS. 4. SIMILAR APPEARANCE LARGE DISK BULGE AND POSTERIOR OSTEOPHYTES AT L2-L3 RESULTING IN CENTRAL SPINAL CANAL STENOSIS. 5. SMALL FAT CONTAINING UMBILICAL HERNIA. JOB NUMBER: [id number] [facility], [place]
== END 2018-11-04 16:31 | disposition home or self-care (01) ==
LOC: ER 14:41
DX: R10.32 Left lower quadrant pain (principal); R11.0 Nausea; R19.7 Diarrhea, unspecified
CPT/HCPCS: 99284 ×2; 96374; 96375; 83690; 85025; 80048; 81003; 74176; J1885; J2405; J7030

== ENCOUNTER 2018-11-08 22:53 | Observation (INO) | payer MEDICARE, OTHER ==
[2018-11-08] MEDS ORDERED: HYDROMORPHONE HCL 2 MG/ML VIAL IVP ONE (23:33)
[2018-11-08] MEDS ORDERED: DIAZEPAM (VALIUM) 5MG/ML **10ML VIAL IVP ONE (23:33)
--- NOTE | 2018-11-08 23:40 | Emergency Department Record ---
History of Present Illness - General Chief Complaint: Back Pain/Injury Stated Complaint: BACK PAIN Time Seen by Provider: 11/08/18 23:32 Source: Patient Mode of Arrival: Ambulatory Limitations: No limitations - History of Present Illness Initial Comments: 68 yo female returns to ED for evaluation of continued right sided low back pain symptoms for the past 4 days. Patient was seen in ED and evaluated for possible kidney stone, evaluation was negative at that time and the patient was diagnosed with low back strain. Patient was treated with Flexeril and Motrin that have not significantly helped her symptoms. Patient reports pain to the left lateral lumbar region radiating to her groin, reports difficulty with initiating urination. Patient denies lower extremity weakness symptoms or numbness over the groin region. MD Complaint: Back pain Onset/Timin -: Week(s) Similar Symptoms Previously: Yes Place: Home Severity: Severe Severity scale (1-10): 10 Quality: Burning, Sharp Consistency: Constant Improves With: Sitting upright Worsens With: Movement Context: Unknown Treatments Prior to Arrival: Prescription analgesics Treatment Prior to Arrival Comment:: motrin 600mg, flexeril at 1800 - Related Data Home Medications Medication Instructions Recorded Confirmed Last Taken Aspirin [Aspir-Low] 81 mg PO DAILY 11/08/18 11/08/18 11/08/18 Previous Rx's Medication Instructions Recorded Cyclobenzaprine HCl [Flexeril] 5 mg PO TID #20 tab 11/04/18 Allergies Allergy/AdvReac Type Severity Reaction Status Date / Time prednisone Allergy Severe Chest pain Verified 11/08/18 23:46 polymyxin B Allergy Mild HIVES Verified 11/08/18 23:46 atorvastatin [From Lipitor] AdvReac MUSCLE PAIN Verified 11/08/18 23:46 Travel Screening - Travel/Exposure Within Last 30 Days Have you traveled within the last 30 days?: No - Travel/Exposure Within Last Year Have you traveled outside the [place] in the last year?: No - Additonal Travel Details Have you been exposed to anyone with a communicable illness?: No - Travel Symptoms Symptom Screening: None Review of Systems Constitutional: Denies: Chills, Fever, Malaise, Night sweats Eyes: Denies: Eye discharge, Eye pain ENT: Denies: Congestion, Ear pain, Epistaxis Respiratory: Denies: Cough, Dyspnea Cardiovascular: Denies: Chest pain, Dyspnea on exertion Endocrine: Denies: Fatigue, Heat or cold intolerance Gastrointestinal: Denies: Abdominal pain, Nausea, Vomiting Genitourinary: Reports: Retention. Denies: Dysuria, Incontinence Musculoskeletal: Reports: Back pain. Denies: Arthralgia Skin: Denies: Bruising, Change in color Neurological: Denies: Abnormal gait, Confusion, Headache, Seizure Psychiatric: Denies: Anxiety Hematological/Lymphatic: Denies: Anemia, Blood Clots Past Medical History - SOCIAL HISTORY Smoking Status: Never smoker Alcohol Use: Rare Drug Use: None - RESPIRATORY Hx Respiratory Disorders: Yes Hx Sleep Apnea: Yes Hx of CPAP: Yes - CARDIOVASCULAR Hx Cardio Disorders: No Hx Hypertension: Yes - NEURO Hx Neuro Disorders: No - GI Hx GI Disorders: Yes Comment:: Treated in 2003 for ulcerative colitis. - Hx Genitourinary Disorders: Yes Hx UTI: Yes - ENDOCRINE Hx Endocrine Disorders: No Hx Diabetes: No Hx Thyroid Disease: No - MUSCULOSKELETAL Hx Musculoskeletal Disorders: No - PSYCH Hx Psych Problems: No - HEMATOLOGY/ONCOLOGY Hx Hematology/Oncology Disorders: No Family Medical History Any Significant Family History?: Yes Hx Cancer: Father Hx Diabetes: Father, Mother, Brother/Sister Hx Resp Disorders: Brother/Sister Hx Stroke: Mother Physical Exam - General General Appearance: Alert, Oriented x3, Cooperative, Moderate distress Limitations: No limitations - Head Head exam: Atraumatic, Normocephalic, Normal inspection Head exam detail: negative: Abrasion, Contusion, Mcgee's sign, General tenderness, Hematoma, Laceration - Eye Eye exam: Normal appearance. negative: Conjunctival injection, Periorbital swelling, Periorbital tenderness, Scleral icterus - ENT Ear exam: negative: Auricular hematoma, Auricular trauma Nasal Exam: negative: Active bleeding, Discharge, Dried blood, Foreign body Mouth exam: negative: Drooling, Laceration, Muffled voice, Tongue elevation - Neck Neck exam: Normal inspection. negative: Meningismus, Tenderness - Respiratory Respiratory exam: Normal lung sounds bilaterally. negative: Rales, Respiratory distress, Rhonchi, Stridor - Cardiovascular Cardiovascular Exam: Regular rate, Normal rhythm, Normal heart sounds - GI/Abdominal GI/Abdominal exam: Soft. negative: Rebound, Rigid, Tenderness - Rectal Rectal exam: Deferred - exam: Deferred - Extremities Extremities exam: Normal inspection. negative: Pedal edema, Tenderness - Back Back exam: Reports: Paraspinal tenderness (Left lateral lumbar region on examination). Denies: CVA tenderness (R), CVA tenderness (L) - Neurological Neurological exam: Alert, Oriented X3, Other (EHL, plantar flexion/dorsiflexion are 5/5 and symmetric bilaterally. No focal weakness is noted on examination.) . negative: Motor sensory deficit - Psychiatric Psychiatric exam: Normal affect, Normal mood - Skin Skin exam: Normal color. negative: Abrasion Type of lesion: negative: abrasion Course Vital Signs 11/08/18 22:58 Temperature 98.3 F Pulse Rate [ 90 Pulse Ox Probe] Respiratory 20 Rate Blood Pressure 136/81 [Left Arm] Pulse Ox 98 - Reevaluation(s) Reevaluation #1: 11/08/18 23:38 CT Abdomen and Pelvis 11/04/18: No acute findings Cholelithiasis Colonic diverticulosis, no diverticulitis Large disc bulge at L2-L3 resulting in central canal stenosis Small fat-containing umbilical hernia CT report was reviewed. Will obtain UA with post-void residual bladder scanning, obtain laboratory studies, and administer analgesia her in the ED. Patient is in agreement with the plan of care as discussed. Reevaluation #2: 11/09/18 00:09 Post-void residual measurement 0, 12, and 0 mL. No evidence for retaining urine on examination. Reevaluation #3: 11/09/18 00:34 Laboratory studies were reviewed and are grossly unremarkable for an acute process. Reevaluation #4: 11/09/18 00:43 Patient reassessed, reports that her pain symptoms are improved to 6/10 vs. 10/ 10. Following discussion re: admission vs. outpatient treatment, patient would feel more comfortable with observation stay for pain control symptoms. Will admit for further observation and pain control. Reevaluation #5: 11/09/18 07:22 Case was discussed with Dr. Shay, will accept admission at this time. Medical Decision Making - Lab Data Result diagrams: 11/08/18 23:50 11/08/18 23:50 Disposition Disposition: Admit Clinical Impression: Low back pain Qualifiers: Chronicity: acute Back pain laterality: left Sciatica presence: without sciatica Qualified Code(s): M54.5 - Low back pain Disc herniation Qualifiers: Spinal region: lumbosacral Qualified Code(s): M51.27 - Other intervertebral disc displacement, lumbosacral region Disposition: Still a Patient at [facility] Decision to Admit: Admit from ER Decision to Admit Date: 11/09/18 Decision to Admit Time: 00:46 Condition: (2) Stable Time of Disposition: 00:46 Quality - Quality Measures Quality Measures: N/A - Blood Pressure Screening Does Patient Have Any of the Following: Active Dx of HTN Blood Pressure Classification: Pre-Hypertensive BP Reading Systolic Measurement: 128 Diastolic Measurement: 69 Screening for High Blood Pressure: Patient Exclusion, Hx of HTN [G9744]
[2018-11-08] MEDS ORDERED: 0.9 % SODIUM CHLORIDE 1000ML 500 ML IV SCH (23:45)
[2018-11-09 00:06] LABS: URINE APPEARANCE SL CLOUDY; URINE BILIRUBIN NEGATIVE (NEGATIVE); URINE BLOOD NEGATIVE (NEGATIVE); URINE COLOR YELLOW; URINE GLUCOSE (UA) NEGATIVE (NEGATIVE); URINE KETONE NEGATIVE (NEGATIVE); URINE LEUKOCYTE ESTERASE SMALL (NEGATIVE); URINE NITRITE NEGATIVE (NEGATIVE); URINE PROTEIN NEGATIVE (NEGATIVE); URINE UROBILINOGEN 0.2 E.U./dL (0.20 - 1.00)
[2018-11-09 00:09] LABS: BASO % 0.3 % (0-6); EOS % 2.9 % (0-6); GRAN % 52.7 % (47-80); HEMATOCRIT 40.9 % (35.0-47.0); HEMOGLOBIN 13.9 gm/dl (11.6-16.0); LYMPH % 36.2 % (16-45); MEAN CELL VOLUME 94.2 fl (81-97); MONO % 7.9 % (0-9); PLATELET COUNT 281 K/uL (130-400); RED BLOOD COUNT 4.34 M/uL (3.80-5.40); RED CELL DISTRIBUTION WIDTH 13.2 % (11.5-14.5); WHITE BLOOD COUNT W/O DIFF 11.6 K/uL (4.2-12.2)
[2018-11-09 00:15] LABS: BLOOD UREA NITROGEN 22 mg/dL (8-23); EST GLOMERULAR FILTRATION RATE 59 mL/min; URINE BACTERIA NONE SEEN; URINE RBC NONE SEEN (NONE SEEN)
[2018-11-09 00:16] LABS: TOTAL PROTEIN 8.1 g/dL (6.6-8.7)
[2018-11-09 00:18] LABS: GLUCOSE,RANDOM 91 mg/dL (74-109)
[2018-11-09 00:20] LABS: ALT/SGPT 28 U/L (<33)
[2018-11-09 00:21] LABS: ALB/GLOB RATIO 1.1 (1.1-1.8); ALBUMIN 4.3 g/dL (4.0-5.0); ALKALINE PHOSPHATASE 54 U/L (35-104); AST/SGOT 58 U/L (10.0-35.0)
[2018-11-09] MEDS ORDERED: 0.9 % SODIUM CHLORIDE 1000ML 1,000 ML IV PRN (02:14)
[2018-11-09] MEDS ORDERED: DIAZEPAM (VALIUM) 5MG/ML **10ML VIAL IVP PRN (02:14)
[2018-11-09] MEDS ORDERED: ESCITALOPRAM 10 MG TABLET PO SCH ×2 (02:14→10:00)
[2018-11-09] MEDS ORDERED: HYDROCHLOROTHIAZIDE 12.5 MG CAPSULE PO SCH ×2 (02:14→10:00)
[2018-11-09] MEDS ORDERED: FENOFIBRATE NANOCRYSTALLIZED 48 MG PO SCH (02:14)
[2018-11-09] MEDS: HYDROMORPHONE HCL 2 MG/ML VIAL IVP PRN ×2 (02:44→07:37)
--- NOTE | 2018-11-09 08:53 | History & Physical ---
History of Present Illness - Date of Service Date of Service for History & Physical: 11/09/18 - History of Present Illness Admitting Diagnosis: Low back pain. Lumabr disc herniation History of Present Illness: Mrs. Osorio is a 68 y/o female with complaint of left lower back and flank pain. The patient was seen in the ED on Wednesday past andCt abdomen/pelvis revealed cholethiasis and incidental finding of disk bulge at L2-L3 and central spinal stenosis. The patient was discharged from the ED with Flexeril and Ibuprofen which she says was not really helpful. 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 She says she was at work last night and she bent over and she began to have excruciating pain of her left lower back and flank 10/10 in severity. She denies radiation of her pain and has no numbness or tingling of her extremities. The patient is admitted to observation for cute pain control. Vitals and labs on admission are within normal limits. PCP: Charity Pérez NP Travel Screening - Travel/Exposure Within Last 30 Days Have you traveled within the last 30 days?: No - Travel/Exposure Within Last Year Have you traveled outside the [place] in the last year?: No - Additonal Travel Details Have you been exposed to anyone with a communicable illness?: No - Travel Symptoms Symptom Screening: None Review of Systems Constitutional: Denies: Chills, Fever, Malaise, Night sweats Eyes: Denies: Eye discharge, Eye pain ENT: Denies: Congestion, Ear pain, Epistaxis Respiratory: Denies: Cough, Dyspnea Cardiovascular: Denies: Chest pain, Dyspnea on exertion Endocrine: Denies: Fatigue, Heat or cold intolerance Gastrointestinal: Denies: Abdominal pain, Nausea, Vomiting Genitourinary: Reports: Retention. Denies: Dysuria, Incontinence Musculoskeletal: Reports: Back pain. Denies: Arthralgia Skin: Denies: Bruising, Change in color Neurological: Denies: Abnormal gait, Confusion, Headache, Seizure Psychiatric: Denies: Anxiety Hematological/Lymphatic: Denies: Anemia, Blood Clots Past Medical History - SOCIAL HISTORY Smoking Status: Never smoker Alcohol Use: Rare Drug Use: None - RESPIRATORY Hx Respiratory Disorders: Yes Hx Sleep Apnea: Yes Hx of CPAP: Yes - CARDIOVASCULAR Hx Cardio Disorders: No Hx Hypertension: Yes - NEURO Hx Neuro Disorders: No - GI Hx GI Disorders: Yes Comment:: Treated in 2003 for ulcerative colitis. - Hx Genitourinary Disorders: Yes Hx UTI: Yes - ENDOCRINE Hx Endocrine Disorders: No Hx Diabetes: No Hx Thyroid Disease: No - MUSCULOSKELETAL Hx Musculoskeletal Disorders: No - PSYCH Hx Psych Problems: No - HEMATOLOGY/ONCOLOGY Hx Hematology/Oncology Disorders: No Family Medical History Any Significant Family History?: Yes Hx Cancer: Father Hx Diabetes: Father, Mother, Brother/Sister Hx Resp Disorders: Brother/Sister Hx Stroke: Mother H&P Meds/Allergies - Allergies Allergies: Allergies Allergy/AdvReac Type Severity Reaction Status Date / Time prednisone Allergy Severe Chest pain Verified 11/08/18 23:46 polymyxin B Allergy Mild HIVES Verified 11/08/18 23:46 atorvastatin [From Lipitor] AdvReac MUSCLE PAIN Verified 11/08/18 23:46 - Home Medications Home Medications Medication Instructions Recorded Confirmed Last Taken Aspirin [Aspir-Low] 81 mg PO DAILY 11/08/18 11/08/18 11/08/18 Previous Rx's Medication Instructions Recorded Cyclobenzaprine HCl [Flexeril] 5 mg PO TID #20 tab 11/04/18 - Active Medications Active Medications: Current Medications Aspirin (Ecotrin (Ec)) 81 mg PO DAILY MARI Diazepam (Diazepam) 2 mg IVP Q8HR PRN PRN Reason: PAIN - MOD TO SEVERE (5-10) Escitalopram Oxalate (Lexapro) 10 mg PO DAILY [facility] Hydrochlorothiazide (Hctz 12.5mg) 12.5 mg PO DAILY [facility] Hydromorphone HCl (Dilaudid) 0.5 mg IVP Q2H PRN PRN Reason: PAIN - MOD TO SEVERE (5-10) Last Admin: 11/09/18 07:37 Dose: 0.5 mg Sodium Chloride () 500 mls @ 0 mls/hr IV .Q0M MARI Last Infusion: 11/09/18 01:04 Dose: Infused Sodium Chloride () 1,000 mls @ 15 mls/hr IV .Q24H PRN PRN Reason: LARGE VOLUME IV Non-Formulary Medication (Fenofibrate Nanocrystallized [Fenofibrate]) 48 mg PO QD MARI Ranitidine HCl (Zantac) 75 mg PO QHS [facility] Physical Exam - Vital Signs Vital Signs: Vital Signs - Last 24 Hrs Temp Pulse Pulse Resp BP BP Pulse Ox 11/09/18 02:05 97 F L 69 18 119/71 99 11/09/18 01:52 98.3 F 75 18 128/69 95 11/09/18 00:34 75 16 143/72 99 11/08/18 22:58 98.3 F 90 20 136/81 98 - General General Appearance: Alert, Oriented x3, Cooperative, Moderate distress Limitations: No limitations - Head Head exam: Atraumatic, Normocephalic, Normal inspection Head exam detail: negative: Abrasion, Contusion, Mcgee's sign, General tenderness, Hematoma, Laceration - Eye Eye exam: Normal appearance. negative: Conjunctival injection, Periorbital swelling, Periorbital tenderness, Scleral icterus - ENT Ear exam: negative: Auricular hematoma, Auricular trauma Nasal Exam: negative: Active bleeding, Discharge, Dried blood, Foreign body Mouth exam: negative: Drooling, Laceration, Muffled voice, Tongue elevation - Neck Neck exam: Normal inspection. negative: Meningismus, Tenderness - Respiratory Respiratory exam: Normal lung sounds bilaterally. negative: Rales, Respiratory distress, Rhonchi, Stridor - Cardiovascular Cardiovascular Exam: Regular rate, Normal rhythm, Normal heart sounds Peripheral Pulses: 3+: Radial (R), Radial (L), Dorsalis Pedis (R), Dorsalis Pedis (L) - GI/Abdominal GI/Abdominal exam: Soft. negative: Rebound, Rigid, Tenderness - Rectal Rectal exam: Deferred - exam: Deferred - Extremities Extremities exam: Normal inspection. negative: Pedal edema, Tenderness - Back Back exam: Reports: Paraspinal tenderness (Left lateral lumbar region on examination), Tenderness (Lumbar spine ). Denies: CVA tenderness (R), CVA tenderness (L) - Neurological Neurological exam: Alert, Oriented X3, Other (EHL, plantar flexion/dorsiflexion are 5/5 and symmetric bilaterally. No focal weakness is noted on examination.) . negative: Motor sensory deficit - Psychiatric Psychiatric exam: Normal affect, Normal mood - Skin Skin exam: Normal color. negative: Abrasion Type of lesion: negative: abrasion Results - Labs Result Diagrams: 11/08/18 23:50 11/08/18 23:50 Labs Last 24 Hours: Laboratory Results - last 24 hr 11/08/18 11/08/1811/08/19 23:50 23:50 23:50 WBC 11.6 RBC 4.34 Hgb 13.9 Hct 40.9 MCV 94.2 MCH 32.0 MCHC 34.0 RDW 13.2 Plt Count 281 MPV 10.0 Gran % 52.7 Lymphocytes % 36.2 Monocytes % 7.9 Eosinophils % 2.9 Basophils % 0.3 Sodium 136 Potassium Not Reportable Chloride 101 Carbon Dioxide 22.0 Anion Gap 13.0 BUN 22 Creatinine 1.0 H Estimated GFR 59 Random Glucose 91 Calcium 10.0 Total Bilirubin 0.50 AST 58 H ALT 28 Alkaline Phosphatase 54 Total Protein 8.1 Albumin 4.3 Globulin 3.8 Albumin/Globulin Ratio 1.1 Urine Color Yellow Urine Appearance Sl cloudy Urine pH 5.5 Ur Specific Grady <= 1.005 Urine Protein Negative Urine Glucose (UA) Negative Urine Ketones Negative Urine Blood Negative Urine Nitrite Negative Urine Bilirubin Negative Urine Urobilinogen 0.2 Ur Leukocyte Esterase Small H Urine RBC None seen Urine WBC 3 - 5 Ur Epithelial Cells 7 - 10 Urine Bacteria None seen VTE H&P Assessment - Risk for VTE Risk for VTE: Yes Risk Level: Moderate Risk Assessment Date: 11/09/18 Risk Assessment Time: 08:43 VTE Orders Placed or Will Be Placed: Yes Plan - Detailed Diagnosis and Plan (1) Disc herniation Current Visit: Yes Status: Acute Qualifiers: Spinal region: lumbosacral Qualified Code(s): M51.27 - Other intervertebral disc displacement, lumbosacral region Base Code: [id number] - Comment: 11/09/18: - Ct abdomen/pelvis: cholethiasis, diverticulosis, disc bulge L3-L4 with spinal stenosis. - Baclofen 10mg TID, D/c dilaudid 0.5mg, start Romulus 1-/325mg TID PRN, Heating pads, beds rest. (2) Low back pain Current Visit: Yes Status: Acute Qualifiers: Chronicity: acute Back pain laterality: left Sciatica presence: without sciatica Qualified Code(s): M54.5 - Low back pain Base Code: M54.5 - LOW BACK PAIN Comment: 11/09/18: - 2/2 to disc bulge as noted. - outpatient follow up with CT or MRI of lumbar spine. - bed rest and supportive care as documented. (3) HTN (hypertension) Current Visit: Yes Status: Acute Base Code: I10 - ESSENTIAL (PRIMARY) HYPERTENSION Comment: 11/09/18: - BP stable. - Resume HCTZ (4) DVT prophylaxis Current Visit: Yes Status: Acute Base Code: [id number] - Comment: 11/09/18: - Lovenox 40mg QD (5) Full code status Current Visit: Yes Status: Acute Base Code: Z78.9 - OTHER SPECIFIED HEALTH STATUS Comment: 11/09/18: - Full code status. - Disposition D/c home. bedrest for the next 5 days. Follow up with PCP
[2018-11-09] MEDS ORDERED: BACLOFEN 10 MG TABLET PO PRN (08:56)
[2018-11-09] MEDS ORDERED: HYDROCODONE/APAP 10/325 TABLET PO PRN (08:57)
--- NOTE | 2018-11-09 09:09 | Discharge Summary ---
Providers Discharge Summary Date: 11/09/18 Date of admission: 11/08/18 01:56 Attending physician: PARUL HALL Primary care physician: Charity Pérez NP Physical Exam - Vital Signs Vital Signs: Vital Signs - Last 24 Hrs Temp Pulse Pulse Resp BP BP Pulse Ox 11/09/18 02:05 97 F L 69 18 119/71 99 11/09/18 01:52 98.3 F 75 18 128/69 95 11/09/18 00:34 75 16 143/72 99 11/08/18 22:58 98.3 F 90 20 136/81 98 - General General Appearance: Alert, Oriented x3, Cooperative, Moderate distress Limitations: No limitations - Head Head exam: Atraumatic, Normocephalic, Normal inspection Head exam detail: negative: Abrasion, Contusion, Mcgee's sign, General tenderness, Hematoma, Laceration - Eye Eye exam: Normal appearance. negative: Conjunctival injection, Periorbital swelling, Periorbital tenderness, Scleral icterus - ENT Ear exam: negative: Auricular hematoma, Auricular trauma Nasal Exam: negative: Active bleeding, Discharge, Dried blood, Foreign body Mouth exam: negative: Drooling, Laceration, Muffled voice, Tongue elevation - Neck Neck exam: Normal inspection. negative: Meningismus, Tenderness - Respiratory Respiratory exam: Normal lung sounds bilaterally. negative: Rales, Respiratory distress, Rhonchi, Stridor - Cardiovascular Cardiovascular Exam: Regular rate, Normal rhythm, Normal heart sounds Peripheral Pulses: 3+: Radial (R), Radial (L), Dorsalis Pedis (R), Dorsalis Pedis (L) - GI/Abdominal GI/Abdominal exam: Soft. negative: Rebound, Rigid, Tenderness - Rectal Rectal exam: Deferred - exam: Deferred - Extremities Extremities exam: Normal inspection. negative: Pedal edema, Tenderness - Back Back exam: Reports: Paraspinal tenderness (Left lateral lumbar region on examination), Tenderness (Lumbar spine ). Denies: CVA tenderness (R), CVA tenderness (L) - Neurological Neurological exam: Alert, Oriented X3, Other (EHL, plantar flexion/dorsiflexion are 5/5 and symmetric bilaterally. No focal weakness is noted on examination.) . negative: Motor sensory deficit - Psychiatric Psychiatric exam: Normal affect, Normal mood - Skin Skin exam: Normal color. negative: Abrasion Type of lesion: negative: abrasion Hospitalization - Hospitalization Admission Diagnosis: Low back pain. Lumabr disc herniation - Problem List/Discharge Diagnosis (1) Disc herniation Status: Acute Discharge Diagnosis: Spinal region: lumbosacral Qualified Code(s): M51.27 - Other intervertebral disc displacement, lumbosacral region Base Code: [id number] - Comment: 11/09/18: - Ct abdomen/pelvis: cholethiasis, diverticulosis, disc bulge L3-L4 with spinal stenosis. - Baclofen 10mg TID, D/c dilaudid 0.5mg, start [place] 1-/325mg TID PRN, Heating pads, beds rest. (2) Low back pain Status: Acute Discharge Diagnosis: Chronicity: acute Back pain laterality: left Sciatica presence: without sciatica Qualified Code(s): M54.5 - Low back pain Base Code: M54.5 - LOW BACK PAIN Comment: 11/09/18: - 2/2 to disc bulge as noted. - outpatient follow up with CT or MRI of lumbar spine. - bed rest and supportive care as documented. (3) HTN (hypertension) Status: Acute Base Code: I10 - ESSENTIAL (PRIMARY) HYPERTENSION Comment: 11/09/18: - BP stable. - Resume HCTZ (4) DVT prophylaxis Status: Acute Base Code: [id number] - Comment: 11/09/18: - Lovenox 40mg QD (5) Full code status Status: Acute Base Code: Z78.9 - OTHER SPECIFIED HEALTH STATUS Comment: 11/09/18: - Full code status. - Disposition D/c home. bedrest for the next 5 days. Follow up with PCP - Hospitalization Course Disposition: Home, Self-Care Hospital Course: Mrs. Osorio is a 68 y/o female with complaint of left lower back and flank pain. The patient was seen in the ED on Wednesday past andCt abdomen/pelvis revealed cholethiasis and incidental finding of disk bulge at L2-L3 and central spinal stenosis. The patient was discharged from the ED with Flexeril and Ibuprofen which she says was not really helpful. 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 She says she was at work last night and she bent over and she began to have excruciating pain of her left lower back and flank 10/10 in severity. She denies radiation of her pain and has no numbness or tingling of her extremities. The patient is admitted to observation for cute pain control. Vitals and labs on admission are within normal limits. PCP: Charity Pérez NP Abnormal Labs: Abnormal Lab Results 11/08/18 11/08/18 Range/Units 23:50 23:50 Creatinine 1.0 H (0.5-0.9) mg/dL AST 58 H (10.0-35.0) U/L Ur Leukocyte Esterase Small H (NEGATIVE) Condition at Discharge: (2) Stable Discharge Medications - Discharge Medications Prescriptions: Baclofen [Lioresal] 5 mg PO TID PRN #21 tab PRN Reason: Spasms Hydrocodone/Acetaminophen [[place] 10-325 Tablet] 1 each PO TID PRN #15 tablet PRN Reason: Pain - Moderate (5-7) Home Medications: Ambulatory Orders Pediatric Multivitamin No.101 [Gummy] 2 tab PO DAILY 09/15/15 [Last Taken ] Cholecalciferol (Vitamin D3) [Vitamin D3] 2,000 unit PO DAILY cap 08/21/16 [ Last Taken 11/08/18] [place] Boro-3 Fatty Acids/Fish Oil [Fish Oil 1,000 mg Capsule] 1 cap PO QD cap [Last Taken 11/08/18] Ranitidine HCl [Zantac] 75 mg PO QHS tab 02/16/18 [Last Taken 11/08/18] Cyclobenzaprine HCl [Flexeril] 5 mg PO TID #20 tab 11/04/18 [Last Taken 11/08/18 ] Aspirin [Aspir-Low] 81 mg PO DAILY 11/08/18 [Last Taken 11/08/18] Baclofen [Lioresal] 5 mg PO TID PRN #21 tab 11/09/18 [Last Taken Unknown] Hydrocodone/Acetaminophen [[place] 10-325 Tablet] 1 each PO TID PRN #15 tablet 10/25 [Last Taken Unknown] Discharge Plan - Discharge Instructions Activity at Discharge: Return To Work Once Cleared By Your PCP/Specialist Diet at Discharge: Low Salt Diet Instructions: Lumbar Disc Herniation (DC), Acute Low Back Pain (DC) Additional Instructions: 2 Activity: Return To Work Once Cleared By Your PCP/Specialist 2 Diet: Low Salt Diet 2 Consults: [] 2 Follow Up: Follow up with your JOIE Nash on November 15 at 2:40pm. Please arrive 10 Minutes early for registration for further workup of your back pain. A work note will be provided to explain your absence for the next 5 days. 2 Dressing/Wound Care: (Type) (Change) 2 Additional: [] You have been prescribed medication for your back pain and muscle spasms. (1) Baclofen 5 mg three times daily as needed for spasms. (2) [place] 10/325mg three times daily as needed for back pain. Quality Measures - Quality Measures Quality Measures: Advance Directives, Documentation of Current Medications in Medical Record, Elder Maltreatment Screen and Follow-Up Plan, Screening for High Blood Pressure and F/U Documented - Current Medications Quality Measure: Measure #130: Documentation of Current Medications Documentation of Current Medications: <Current Medications Documented/Reviewed> [G8427] - Blood Pressure Screening Quality Measure: Screening for High Blood Pressure and Follow-Up Documented Does Patient Have Any of the Following: Active Dx of HTN Blood Pressure Classification: Pre-Hypertensive BP Reading Systolic Measurement: 128 Diastolic Measurement: 69 Screening for High Blood Pressure: Patient Exclusion, Hx of HTN [G9744] - Advance Directives Quality Measure: Measure #47: Care Plan Advance Directives Established: No Advance Directives Information Provided To Patient: No Advance Directives on File: No Living Will: No Power of Can Intake Worker: No Advance Care Planning: <Care Plan/Decision Maker Not Decided; Discussed & Documented> [1126F] - Elder Abuse Suspicion Index Screening: Elder Abuse Suspicion Index Screening Rely on people for bathing, dressing, shopping, banking, etc: No Prevented from getting food, clothes, medication, etc: No Made to feel shamed or threatened by someone: No Forced to sign papers or use money against will: No Feel afraid, touched in ways not wanted or hurt physically: No Poor eye contact, withdrawn, malnourished, cuts or bruises: No Screening Result: Negative result EASI Reference Information: Ramy GOMEZ, Sonya Manrique, Gallito Crystal, Christiano Ramon.Development and validation of a tool to assist physicians identification of elder abuse: The Elder Abuse Suspicion Index (EASI ). Journal of Elder Abuse and Neglect, 2008; 20 (3): 276-300. - Elder Maltreatment Screen Quality Measures: Elder Maltreatment Screen and Follow-Up Plan Elder Maltreatment Screen: <Negative, No Follow-Up Plan Required> [X5699]
[2018-11-09] MEDS ORDERED: ASPIRIN 81 MG TABEC PO SCH (10:00)
[2018-11-09] MEDS ORDERED: RANITIDINE HCL 150 MG TABLET PO SCH (22:00)
== END 2018-11-09 10:35 | disposition home or self-care (01) ==
LOC: ER 22:53 → MEDSURG 11-09 01:56
PROVIDERS: ADMIT Internal Medicine; ATTEND Internal Medicine
DX: M51.27 Other intervertebral disc displacement, lumbosacral region (principal); I10 Essential (primary) hypertension; G47.33 Obstructive sleep apnea (adult) (pediatric)
CPT/HCPCS: 80053; 81001; 85025; 96374; 96375; 99220; 99285; J3360; J7030

== ENCOUNTER 2019-03-08 05:58 | Day surgery (SDC) | payer MEDICARE, OTHER ==
[2019-03-08] MEDS ORDERED: PROPOFOL 10 MG/ML VIAL IV ONE (05:59)
[2019-03-08] MEDS ORDERED: LIDOCAINE 2% MDV (20MG/ML) 20ML VIAL IV ONE (05:59)
[2019-03-08] MEDS ORDERED: GLYCOPYRROLATE 0.2 MG/ML ML IV ONE (05:59)
[2019-03-08] MEDS ORDERED: RINGERS SOLUTION,LACTATED 1,000 ML IV ONE (07:00)
[2019-03-08] MEDS ORDERED: BUPIVACAINE 0.5% (5MG/ML) PF 30ML VIAL IM ONE (07:40)
[2019-03-08] MEDS ORDERED: BUPIVACAINE 0.5% W/EPI MPF 30 ML VIAL SQ ONE (07:40)
[2019-03-08] MEDS ORDERED: DEXAMETHASONE PRESERVATIVE FREE 10MG/ML VIAL SQ ONE (07:40)
[2019-03-08] MEDS ORDERED: LIDOCAINE 1% W/EPI 1:200,000 MPF 30ML SQ ONE (07:40)
--- NOTE | 2019-03-10 11:01 | Operative Note ---
DATE OF SURGERY: 03/08/2019 PREOPERATIVE DIAGNOSIS: Lumbar spondylosis without myelopathy. ICD10 code M47.816. OPERATION: Fluoroscopic-guided infiltration of block bilateral lumbar facets 3- 4, 4-5, 5-1. ANESTHESIA: Local with sedation. ANESTHESIA PROVIDER: Effie Vail CRNA INDICATION: This patient presents with primary back pain. Examination showed tenderness lumbar spine. Range of motion does cause pain in the low back with extension. Diagnostic studies showed diffuse and multilevel facet changes. PROCEDURE: Intravenous line, vital sign monitoring, IV sedation, prepped and draped in sterile technique. Under imaging, facet levels lumbar spine in the area of pain were identified and marked 3-4, 4-5, 5-1 bilateral. Each one of these points on the skin infiltrated. A 22-gauge 3-1/2 inch needle into the facet with 1 mL of 0.5% Marcaine and dexamethasone injected bilaterally. Areas cleaned. Topical antibiotic and sterile dressing applied. Will monitor and evaluate. MTDD
== END 2019-03-08 08:37 | disposition home or self-care (01) ==
LOC: SUR 05:58
PROVIDERS: ATTEND Pain Medicine Interventional Pain Medicine
DX: M47.816 Spondylosis without myelopathy or radiculopathy, lumbar region (principal); I10 Essential (primary) hypertension; E78.00 Pure hypercholesterolemia, unspecified; K21.9 Gastro-esophageal reflux disease without esophagitis; G47.33 Obstructive sleep apnea (adult) (pediatric)
CPT/HCPCS: 64493; 64494; 64495; 01992; J1100; J7120

== ENCOUNTER 2019-05-24 07:54 | Day surgery (SDC) | payer MEDICARE, OTHER ==
[2019-05-24] MEDS ORDERED: LABETALOL HCL 5MG/ML, 20ML VIAL IV ONE (07:55)
[2019-05-24] MEDS ORDERED: ALFENTANIL HCL 500 MCG/1ML, 2ML AMP IV ONE (07:55)
[2019-05-24] MEDS ORDERED: *PACU ONLY* KETAMINE HCL 10 MG/ML (20ML) VIAL IV ONE (07:55)
[2019-05-24] MEDS ORDERED: MIDAZOLAM HCL 2MG/2ML VIAL IV ONE (07:55)
[2019-05-24] MEDS ORDERED: RINGERS SOLUTION,LACTATED 1,000 ML IV ONE (08:19)
[2019-05-24] MEDS ORDERED: LIDOCAINE 1% W/EPI 1:100,000 MDV 20 ML VIAL SQ ONE (09:32)
[2019-05-24] MEDS ORDERED: BUPIVACAINE 0.5% W/EPI MPF 30 ML VIAL SQ ONE (09:33)
--- NOTE | 2019-05-25 07:31 | Operative Note - [place] ---
DATE OF SURGERY: 05/24/2019 PREOPERATIVE DIAGNOSIS: Lumbar spondylosis without myelopathy, ICD-10 code M47.816. OPERATION: RADIOFREQUENCY RHIZOTOMY BILATERAL LUMBAR FACETS L3-L4, L4-L5 AND L5-S1. SURGEON: Jorge Alberto Wu D.O. ANESTHESIA: Local sedation. ANESTHESIA PROVIDER: Effie Vail CRNA INDICATION: This patient presents with primary back pain. Examination showed tenderness of the lumbar spine. Range of motion causes pain to the low back with extension. Diagnostic studies show diffuse and multilevel spondylitic change. Lumbar facet series 75% pain relieve. Due to the failure of therapy and the success of facet series, the patient presents for rhizotomy for more usp relief. PROCEDURE: Intravenous line, vital sign monitoring, IV sedation, prepped and draped, sterile technique. Under imaging facet levels in the lumbar spine in the area of pain were identified and marked at L3-L4, L4-L5 and L5-S1 bilateral. Each one of these points on the skin were infiltrated. A 20-gauge rhizotomy cannula positioned. Stimulation trial was conducted. Rhizotomy burn was performed 80 degrees, 90 seconds at each site bilateral. Local was injected into the sites. No anti-inflammatory because of allergies. She was transported to the recovery room in stable condition. No side effects from the procedure. Will monitor and evaluate. JOB NUMBER: [id number] MTDD
== END 2019-05-24 10:17 | disposition home or self-care (01) ==
LOC: SUR 07:54
PROVIDERS: ATTEND Pain Medicine Interventional Pain Medicine
DX: M47.816 Spondylosis without myelopathy or radiculopathy, lumbar region (principal); I10 Essential (primary) hypertension; E78.00 Pure hypercholesterolemia, unspecified; K21.9 Gastro-esophageal reflux disease without esophagitis; K51.90 Ulcerative colitis, unspecified, without complications; G47.33 Obstructive sleep apnea (adult) (pediatric)
CPT/HCPCS: J7120

== ENCOUNTER 2019-08-15 23:26 | Emergency (ER) | payer MEDICARE, OTHER ==
--- NOTE | 2019-08-15 23:43 | Emergency Department Record ---
History of Present Illness - General Chief Complaint: Altered Mental Status Stated Complaint: CONFUSION Time Seen by Provider: 08/15/19 23:28 Source: Patient Mode of Arrival: Ambulatory Limitations: Altered mental status - History of Present Illness Initial Comments: 69 yo female presents to ED for evaluation of confusion that began this evening. 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 Patient denies focal deficits on examination, denies use of anticoagulation medciations. Patient reports history of HTN, denies recent illness. MD Complaint: Confusion Onset/Timin -: Hour(s) Severity: Moderate Consistency: Constant Associated Symptoms: Denies other symptoms - [place] Coma Scale Eye Response: (4) Open spontaneously Motor Response: (6) Obeys commands Verbal Response: (5) Oriented [place] Total: 15 - Related Data Home Medications Medication Instructions Recorded Confirmed Last Taken Doxylamine Succinate [Unisom Sleep 50 mg PO QHS PRN 08/15/19 08/15/19 Unknown Aid] Loratadine [Claritin] 10 mg PO DAILY 08/15/19 08/15/19 Unknown Allergies Allergy/AdvReac Type Severity Reaction Status Date / Time prednisone Allergy Severe Chest pain Unverified 12/14/18 14:48 polymyxin B Allergy Mild HIVES Unverified 12/14/18 14:48 atorvastatin [From Lipitor] AdvReac MUSCLE PAIN Unverified 12/14/18 14:48 Review of Systems Constitutional: Denies: Chills, Fever, Malaise, Night sweats Eyes: Denies: Eye discharge, Eye pain ENT: Denies: Congestion, Ear pain, Epistaxis Respiratory: Denies: Cough, Dyspnea Cardiovascular: Denies: Chest pain, Dyspnea on exertion Endocrine: Denies: Fatigue, Heat or cold intolerance Gastrointestinal: Denies: Abdominal pain, Nausea, Vomiting Genitourinary: Denies: Incontinence, Retention Musculoskeletal: Denies: Arthralgia, Back pain Skin: Denies: Bruising, Change in color Neurological: Reports: Headache. Denies: Abnormal gait, Confusion, Paresthesias, Vertigo Psychiatric: Denies: Anxiety Hematological/Lymphatic: Denies: Anemia, Blood Clots Past Medical History - SOCIAL HISTORY Smoking Status: Never smoker - RESPIRATORY Hx Respiratory Disorders: Yes Hx Pneumonia: Yes Hx Sleep Apnea: Yes Hx of CPAP: Yes Comment:: ALLERGIES - CARDIOVASCULAR Hx Cardio Disorders: Yes Hx Hypertension: Yes (ON MEDS WITH GOOD CONTROL) Comment:: HYPERLIPIDEMIA - NEURO Hx Neuro Disorders: Yes Hx Headaches: Yes (FREQUENTLY) - GI Hx GI Disorders: Yes Hx Diverticulitis: Yes Hx Reflux: Yes (ON MEDS) Comment:: Treated in 2003 for ulcerative colitis. - Hx Genitourinary Disorders: Yes Hx UTI: Yes (IN THE PAST) - ENDOCRINE Hx Endocrine Disorders: No Hx Diabetes: No Hx Thyroid Disease: No - MUSCULOSKELETAL Hx Musculoskeletal Disorders: Yes Hx Arthritis: Yes - PSYCH Hx Psych Problems: Yes Hx Depression: Yes (ON MEDS) - HEMATOLOGY/ONCOLOGY Hx Hematology/Oncology Disorders: No Family Medical History Hx Cancer: Father Hx Diabetes: Father, Mother, Brother/Sister Hx Resp Disorders: Brother/Sister Hx Stroke: Mother Physical Exam - General General Appearance: Alert, Oriented x3, Cooperative, Mild distress, Other (Stable gait, AOx 3 on examination) Limitations: No limitations - Head Head exam: Atraumatic, Normocephalic, Normal inspection Head exam detail: negative: Abrasion, Contusion, Mcgee's sign, General tenderness, Hematoma, Laceration - Eye Eye exam: Normal appearance. negative: Conjunctival injection, Periorbital swelling, Periorbital tenderness, Scleral icterus - ENT Ear exam: negative: Auricular hematoma, Auricular trauma Nasal Exam: negative: Active bleeding, Discharge, Dried blood, Foreign body Mouth exam: negative: Drooling, Laceration, Muffled voice, Tongue elevation - Neck Neck exam: Normal inspection. negative: Meningismus, Tenderness - Respiratory Respiratory exam: Normal lung sounds bilaterally. negative: Respiratory distress, Rhonchi, Stridor, Wheezes - Cardiovascular Cardiovascular Exam: Regular rate, Normal rhythm, Normal heart sounds - GI/Abdominal GI/Abdominal exam: Soft. negative: Rebound, Rigid, Tenderness - Rectal Rectal exam: Deferred - exam: Deferred - Extremities Extremities exam: Normal inspection. negative: Pedal edema, Tenderness - Back Back exam: Denies: CVA tenderness (R), CVA tenderness (L) - Neurological Neurological exam: Alert, CN II-XII intact, Normal gait, Oriented X3. negative: Motor sensory deficit - Psychiatric Psychiatric exam: Normal affect, Normal mood - Skin Skin exam: Normal color. negative: Abrasion Type of lesion: negative: abrasion Course - Reevaluation(s) Reevaluation #1: 08/15/19 23:42 Patient was seen and examined, NIH stroke scale is 0. Symptoms may be related to elevated blood pressure, vs. possible TGA. Will obtain CT imaging of the head, laboratory studies, and reassess. Reevaluation #2: 08/16/19 00:03 EKG: NSR 69 Normal axis, normal intervals No acute ST-T wave changes Reevaluation #3: 08/16/19 00:25 Laboratory studies were reviewed and appear grossly unremarkable for an acute process. CT Brain: No acute process Patient was reassessed, reports that she still feels confused/having difficulties forming new memories. Will initiate transfer for neurology evaluation. Repeat BP is improved to 176/83 currently. Reevaluation #4: 08/16/19 00:38 Case was discussed with Dr. Floyd, will accept transfer for further evaluation. Medical Decision Making - Lab Data Result diagrams: 08/15/19 23:50 08/15/19 23:50 Disposition Disposition: Transfer Clinical Impression: Confusion HTN (hypertension) Qualifiers: Hypertension type: unspecified Qualified Code(s): I10 - Essential (primary) hypertension Disposition: Acute Care Hospital Transfer Transfer To: [facility] Reason For Transfer: Neurology consultation Accepting Physician: Mariel Time Discussed w/Accepting Physician: 00:38 Condition: (2) Stable Forms: Patient Portal Access Time of Disposition: 00:39 Quality - Quality Measures Quality Measures: N/A - Blood Pressure Screening Does Patient Have Any of the Following: Active Dx of HTN Blood Pressure Classification: Hypertensive Reading Systolic Measurement: 200 Diastolic Measurement: 123 Screening for High Blood Pressure: Patient Exclusion, Hx of HTN [G9744]
[2019-08-16 00:01] LABS: URINE APPEARANCE CLEAR; URINE BILIRUBIN NEGATIVE (NEGATIVE); URINE BLOOD NEGATIVE (NEGATIVE); URINE COLOR YELLOW; URINE GLUCOSE (UA) NEGATIVE (NEGATIVE); URINE KETONE NEGATIVE (NEGATIVE); URINE LEUKOCYTE ESTERASE NEGATIVE (NEGATIVE); URINE NITRITE NEGATIVE (NEGATIVE); URINE PROTEIN NEGATIVE (NEGATIVE); URINE UROBILINOGEN 0.2 E.U./dL (0.20 - 1.00)
[2019-08-16 00:02] LABS: AMPHETAMINE SCREEN URINE NOT DETECTED; BARBITURATE SCREEN URINE NOT DETECTED; BENZODIAZEPINE SCREEN URINE NOT DETECTED; COCAINE SCREEN URINE NOT DETECTED; METHADONE SCREEN URINE NOT DETECTED; METHAMPHETAMINE SCREEN NOT DETECTED; OPIATE SCREEN URINE NOT DETECTED; OXYCODONE SCREEN URINE NOT DETECTED; PHENCYCLIDINE SCREEN URINE NOT DETECTED; PROPOXYPHENE SCREEN URINE NOT DETECTED; THC SCREEN URINE NOT DETECTED; TRICYCLIC ANTIDEPRESSANT SCRN NOT DETECTED
[2019-08-16 00:08] LABS: ABSOLUTE NEUTROPHIL COUNT 5.25; BASO % 0.4 % (0-6); EOS % 4.1 % (0-6); HEMATOCRIT 44.2 % (35.0-47.0); HEMOGLOBIN 14.8 gm/dl (11.6-16.0); LYMPH % 39.5 % (16-45); MEAN CELL VOLUME 96.5 fl (81-97); MEAN CORPUSCULAR HEMOGLOBIN 32.3 pg (27-33); MEAN CORPUSCULAR HGB CONC 33.5 g/dl (32-36); MEAN PLATELET VOLUME 9.8 fl (7.4-10.4); PLATELET COUNT 271 K/uL (130-400); RED BLOOD COUNT 4.58 M/uL (3.80-5.40); RED CELL DISTRIBUTION WIDTH 13.4 % (11.5-14.5); WHITE BLOOD COUNT W/O DIFF 10.9 K/uL (4.2-12.2)
[2019-08-16 00:13] LABS: BLOOD UREA NITROGEN 19 mg/dL (8-23); CREATININE 0.7 mg/dL (0.5-0.9); EST GLOMERULAR FILTRATION RATE > 60 mL/min
[2019-08-16 00:14] LABS: TOTAL PROTEIN 8.1 g/dL (6.6-8.7)
[2019-08-16 00:16] LABS: GLUCOSE,RANDOM 89 mg/dL (74-109)
[2019-08-16 00:19] LABS: ALB/GLOB RATIO 1.1 (1.1-1.8); ALBUMIN 4.3 g/dL (4.0-5.0); ALKALINE PHOSPHATASE 104 U/L (35-104); ALT/SGPT 23 U/L (<33); AST/SGOT 25 U/L (10.0-35.0)
--- NOTE | 2019-08-16 00:25 | CT SCAN REPORT ---
EXAMINATION: CT Head without IV Contrast EXAM DATE: 08/16/2019 12:22 AM TECHNIQUE: Standard protocol CT images of the head were obtained without intravenous contrast. Alvarez l and sagittal reconstructed images were created. INDICATION: Confusion COMPARISON: None HAND DOMINANCE: Unknown. ENCOUNTER: Not applicable FINDINGS: 1. There is no intracranial mass, midline shift, extraaxial fluid collection or hemorrhage. 2. The ventricles, sulci and cisterns are normal. 3. There are no suspicious area of altered attenuation. 4. There is no fracture. 5. The visualized aspects of the orbits, paranasal sinuses, and mastoid air cells are normal. IMPRESSION: No acute intracranial abnormality is appreciated Dictated by: Neva Lewis DO on 08/16/2019 12:22 AM. .
[2019-08-16 00:29] LABS: THYROID STIMULATING HORMONE 5.27 uIU/mL (0.270-4.20)
== END 2019-08-16 01:11 | disposition short-term general hospital (02) ==
LOC: ER 23:26
DX: R41.0 Disorientation, unspecified (principal); I10 Essential (primary) hypertension
CPT/HCPCS: 70450; 80053; 80305; 81003; 82140; 84443; 84484; 85025; 93005; 93010; 99285